=== PATIENT | male | born 2000 | race Caucasian/White ===

== ENCOUNTER 2018-04-29 08:42 | Inpatient (IN) | payer OTHER ==
[~2018-04-29] VITALS: Ht 190.5 cm; Wt 86.2 kg
[2018-04-29] MEDS ORDERED: IBUPROFEN800 MG PO (09:15)
--- NOTE | 2018-04-29 20:00 | OR ---
[facility] [address] [facility] [place], [place] [address] Signed DATE OF OPERATION: 04/29/2018 SURGEON: Dafne Garcia MD PREOPERATIVE DIAGNOSIS: Acute appendicitis, retrocecal. POSTOPERATIVE DIAGNOSIS: Acute appendicitis, retrocecal. PROCEDURE: Laparoscopic appendectomy, difficult related to retrocecal position. ANESTHESIA: General endotracheal, Anthony Pinckard, HAND EDGER and local 20 mL of 0.25% Marcaine with epinephrine. INDICATION: This 18-year-old white man is admitted having presented to the emergency room with right-sided abdominal pain. A CT scan confirmed a dilated inflamed appendix in the retrocecal area extending from iliac crest cephalad to the inferior edge of the liver. It appears to have a true retrocecal appendicitis. It is notable he has had at least 2 and possibly 3 episodes over the past four months of right-sided abdominal pain, which subsided after a few days, but this episode is unrelenting and significant. On that basis, he is admitted having undergone fluid resuscitation, IV antibiotic administration, so forth to undergo appendectomy, preferably by laparoscopic approach. He understands that an open procedure may be required as the position of the appendix is truly retrocecal and may be difficult. The risks of bleeding, infection, ureteral injury, and other unforeseen complications were reviewed of course in detail. FINDINGS: He definitely had a retrocecal appendix, a true retrocecal appendix indeed. The liver and gallbladder all appeared normal. The tip of the appendix was extended up to the liver edge. The appendix was excised laparoscopically with all due care and completely so with no residual appendix was accomplished without complication or significant blood loss, though it was rather prolonged, complicated, difficult on the basis of its position. The terminal ileum was normal as was the gallbladder and liver. Electronically Signed By: DAFNE GARCIA MD 04/29/181999 PATIENT NAME: SAM COOK OPERATIVE REPORT DATE OF : [birth year] REPORT #: [id number] PHYSICIAN: DAFNE GARCIA MD PCP: DESIRAE KELLY REPORT IS CONFIDENTIAL AND NOT TO BE RELEASED WITHOUT AUTHORIZATION [facility] [address] [facility] [place] [address] Signed DESCRIPTION OF PROCEDURE: The patient was brought to the operating room, given a general endotracheal anesthetic. Preoperative antibiotic cefoxitin had been given and a dose given in the operating room as well. A Guzman catheter was placed. The abdomen is clipped and prepared with a chlorhexidine solution and draped sterilely. An infraumbilical incision was made and using an open Rick cannula technique, pneumoperitoneum was achieved to a level of 14 mmHg of carbon dioxide gas. Intraabdominal inspection showed no sign of ascites or carcinomatosis. The gallbladder appeared normal as did the liver. The right colon appeared normal. The appendix was not visible, as expected. A 10 mm epigastric port was placed and the camera was placed to this area. Single hand manipulation of the right colon and cecum was undertaken showing the base of the appendix, but extending in a retrocecal extraperitoneal position. The right colon could be rotated to the midline and one could trace the faint outline of the retrocecal appendix paralleling the right colon itself. Examination of the upper portion showed the tip of the appendix just below the edge of the right lobe of the liver. A 5 mm port was placed in the right lower quadrant. This allowed for two hand manipulation. Initially, it was thought a possibility to rotate the right colon to the midline. However, given the uncertainty of the position of the ureter, this approach was abandoned and attention turned towards the tip of the appendix, which was clearly able to be grasped in its peritoneal surface and elevated. This was accomplished and using blunt electrocautery dissection with a hook dissector, the tip of the appendix was used to free the appendix from its retroperitoneal position. The dissection was taken inferiorly with all due care. Dissection was carried close to the appendix itself and mesenteric vessels were encountered. Clips were applied and further dissection undertaken. Ultimately, the appendix was dissected as far inferiorly as possible and attention returned toward the cecum itself. The cecum was elevated and rotated medially and the base of the appendix could be seen more fully. The peritoneal covering was incised again with electrocautery now with good competence as to the retroperitoneal structures. Once it was fully skeletonized and elevated and the mesoappendix secured with clips and divided, an Endo-AYDE stapling device was used to transect the appendix, flushed with the cecum. Appendix was withdrawn into the infraumbilical trocar sleeve and removed and passed for pathology after photographs further taken. Irrigation was undertaken in the retrocolic area. The staple line appeared secure. There was no untoward bleeding. Excess irrigation fluid was suctioned free. The trocars were removed under direct visualization showing no sign of bleeding. The infraumbilical fascial incision was reapproximated with interrupted 0 Vicryl suture. All wounds were copiously irrigated with saline solution and a 20 mL of 0.25% Marcaine with epinephrine was injected locally. The skin was then closed with interrupted 3-0 Vicryl. Steri-Strips were applied. The patient was ultimately extubated and transferred to recovery room in good condition having suffered no complication. Sponge, needle, and instrument counts reported as correct x2. Electronically Signed By: DAFNE GARCIA MD 04/29/18 2000 PATIENT NAME: SAM COOK OPERATIVE REPORT DATE OF : [birth year] REPORT #: [id number] PHYSICIAN: DAFNE GARCIA MD PCP: DESIRAE KELLY REPORT IS CONFIDENTIAL AND NOT TO BE RELEASED WITHOUT AUTHORIZATION [address] [place], [place] [address] Signed MD FREDY Dennis/STALINL /[id number] cc: Baljinder Cotton Copies: BALJINDER COTTON Electronically Signed By: DAFNE GARCIA MD 04/29/181999 PATIENT NAME: SAM COOK OPERATIVE REPORT DATE OF : [birth year] REPORT #: [id number] PHYSICIAN: DAFNE GARCIA MD PCP: DESIRAE KELLY REPORT IS CONFIDENTIAL AND NOT TO BE RELEASED WITHOUT AUTHORIZATION
[2018-04-30] MEDS ORDERED: OXYCODON-ACETA1 EAC2 PO (08:26)
[2018-04-30] MEDS ORDERED: MOTRIN IB200 MG PO (08:27)
[2018-04-30] MEDS ORDERED: TYLENOL325 MG PO (08:27)
--- NOTE | 2018-04-30 08:39 | HP ---
[facility] [address] [place], [place] [address] Signed ADMISSION DATE: 04/29/2018 REASON FOR ADMISSION: Acute appendicitis (retrocecal ascending appendix). HISTORY OF PRESENT ILLNESS: This 18-year-old white man works for [employer] in [facility]. He lives in [place] with his family. This is his third episode of right lower and right mid abdominal pain in the past 3 months. Two previous episodes seem to pass without specific therapy on their own. He presented to the emergency room with a recurrence of his pain and mostly in the right lower abdomen, but extending somewhat to the right mid abdomen as well. He had no associated nausea or vomiting. His evaluation by Dr. Cordero in the emergency room showed an elevated white count of 15,000. A normal chem profile and urinalysis, which was normal, but a CT scan of the abdomen was performed on the strong suspicion of appendicitis showing indeed a dilated and edematous appendix, adherently located in the retrocecal area extending from the level of iliac crest superiorly between the kidney and lower aspect of the liver. There is no extraluminal gas or sign of perforation. It is surrounded by fluid. He is admitted for further evaluation and care. PAST MEDICAL HISTORY: Does include left hand tendon laceration related to his arm through a window with subsequent additional repair for disruption of the repair. He otherwise remains in robust health. MEDICATIONS: He takes no medications on a chronic basis. ALLERGIES: He has no known drug allergies. He last ate yesterday. SOCIAL HISTORY: He is unmarried. He works in a construction capacity as previously described. Lives in [facility]. REVIEW OF SYSTEMS: He denies any shortness of breath or chest pain. He has had no dysphagia or dysuria. Denies any hematemesis or blood per rectum. Electronically Signed By: DAFNE GARCIA MD 04/30/18 0839 PATIENT NAME: SAM COOK HISTORY AND PHYSICAL DATE OF : [birth year] REPORT #: [id number] PHYSICIAN: DAFNE GARCIA MD PCP: DESIRAE KELLY REPORT IS CONFIDENTIAL AND NOT TO BE RELEASED WITHOUT AUTHORIZATION [facility] [address] [place], [place] [address] Signed PHYSICAL EXAMINATION: GENERAL: A healthy-appearing white man, who looks to be in good shape overall. HEENT: Trachea is midline. He has no hoarseness. Mucous membranes were reasonably moist. CHEST: Clear. HEART: Regular without murmur. ABDOMEN: Nondistended. Rovsing sign is negative. He does have tenderness in McBurney's point and cephalad to that as well to some degree. He shows no sign of ascites. EXTREMITIES: No clubbing, cyanosis, or edema. He had scars on his left hand. LABORATORY DATA: His white count is 15.1, hematocrit 44.5, and platelets 239,000. Chem profile is normal. Glucose 105. Urinalysis is normal. CT scan was reviewed in detail. The offending inflamed appendix is well noted. ASSESSMENT: The patient has appendicitis and has had recurrent bouts of appendicitis from the sound of it over the past 3 months. We discussed the pathophysiology of appendicitis and recommendation for treatment to include appendectomy. This may be a more challenging situation given the location of the appendix. A laparoscopic approach would be intended and likely possible, but an open procedure may be required as well. We discussed that in detail and he understands. The risks of bleeding, infection, ureteral injury, and other unforeseen complications related to operation were reviewed in detail. He understands and wished to proceed MD FREDY Dennis/STALINL /[id number] Copies: Electronically Signed By: DAFNE GARCIA MD 04/30/18 0839 PATIENT NAME: SAM COOK HISTORY AND PHYSICAL DATE OF : [birth year] REPORT #: [id number] PHYSICIAN: DAFNE GARCIA MD PCP: DESIRAE KELLY REPORT IS CONFIDENTIAL AND NOT TO BE RELEASED WITHOUT AUTHORIZATION [address] [place] [address] Signed ~ Electronically Signed By: DAFNE GARCIA MD 04/30/18 0839 PATIENT NAME: SAM COOK HISTORY AND PHYSICAL DATE OF : [birth year] REPORT #: [id number] PHYSICIAN: DAFNE GARCIA MD PCP: DESIRAE KELLY REPORT IS CONFIDENTIAL AND NOT TO BE RELEASED WITHOUT AUTHORIZATION
== END 2018-04-30 09:50 | disposition home or self-care (01) | DRG 343 ==
LOC: ED 08:42 → MS 08:44 → ED 08:44 → MS 13:15
PROVIDERS: ADMIT Surgery
PROC: 0DTJ4ZZ Resection of Appendix, Percutaneous Endoscopic Approach (ICD-10-PCS; principal; 2018-04-29 16:00)
DX: K35.80 Unspecified acute appendicitis (principal); F17.220 Nicotine dependence, chewing tobacco, uncomplicated
CPT/HCPCS: 00840; 74177; 80053; 81001; 83690; 85025; 96361; 96374; 96375; 99285; J0694; J1170; J1644; J1885; J2405; J2704; J2765; J3010; J7120; Q9967

== ENCOUNTER 2018-05-03 17:59 | Emergency (ER) | payer OTHER ==
[~2018-05-03] VITALS: Ht 190.5 cm; Wt 86.2 kg
[~2018-05-03 17:59] MED LIST: IBUPROFEN800 MG PO; MOTRIN IB200 MG PO; OXYCODON-ACETA1 EAC2 PO; TYLENOL325 MG PO
[2018-05-03] MEDS ORDERED: CIPRO500 MG PO (21:20)
[2018-05-03] MEDS ORDERED: FLAGYL500 MG PO (21:20)
== END 2018-05-03 21:30 | disposition home or self-care (01) ==
LOC: ED 17:59
DX: K52.9 Noninfective gastroenteritis and colitis, unspecified (principal); Z79.891 Long term (current) use of opiate analgesic
CPT/HCPCS: 74177; 80053; 81001; 83605; 85025; 96361; 96374; 96375; 96376; 99284; J2270; J2405; J7030; Q9967

== ENCOUNTER 2018-05-15 12:06 | Emergency (ER) | payer OTHER ==
[~2018-05-15] VITALS: Ht 190.5 cm; Wt 86.2 kg
[~2018-05-15 12:06] MED LIST changes: +CIPRO500 MG PO; +FLAGYL500 MG PO
[2018-05-15] MEDS ORDERED: ANECREAM5 GM TOP (13:25)
[2018-05-15] MEDS ORDERED: COL-RITE100 MG PO (13:25)
== END 2018-05-15 13:34 | disposition home or self-care (01) ==
LOC: ED 12:06
DX: K60.2 Anal fissure, unspecified (principal)
CPT/HCPCS: 99283